=== PATIENT | male | born 1975 | race Hispanic/Latino ===

== ENCOUNTER 2023-03-29 09:11 | Observation (INO) | payer SELFPAY ==
[2023-03-29] MEDS ORDERED: Acetaminophen 325 MG TAB PO PRN (09:41)
[2023-03-29] MEDS ORDERED: hydrALAZINE 20 MG/ML VIAL SLOW IVP PRN (09:41)
[2023-03-29] MEDS ORDERED: Ondansetron ODT 4 MG TAB PO PRN (09:41)
[2023-03-29 10:36] VITALS: BMI 34.2
[2023-03-29] MEDS ORDERED: Atorvastatin Calcium 40 MG TAB PO SCH (21:00)
[2023-03-30 05:46] LABS: Cardiac Risk 5.6 (Less than 4.5)
[2023-03-30] MEDS ORDERED: Aspirin 81 mg Enteric Coated Tablet PO SCH (09:00)
[2023-03-30 18:02] VITALS: BP 141/90; TEMP 98.3
== END 2023-03-30 19:32 | disposition home or self-care (01) ==
LOC: CSHTELE 09:11 → INTOOBSV 09:11
PROVIDERS: ADMIT Family Medicine; ATTEND Family Medicine
DX: R42 Dizziness and giddiness (principal); R47.81 Slurred speech; M79.661 Pain in right lower leg; G45.9 Transient cerebral ischemic attack, unspecified; I10 Essential (primary) hypertension; R20.0 Anesthesia of skin; Z98.890 Other specified postprocedural states; Z79.82 Long term (current) use of aspirin; Z79.899 Other long term (current) drug therapy
CPT/HCPCS: 36415; 70551; 80061; 84443; 93306; 93880; 96372; G0378; J1650